=== PATIENT | female | born 1995 | race Caucasian/White ===

== ENCOUNTER 2016-06-20 20:14 | Emergency (ER) | payer BC ==
[~2016-06-20] VITALS: Ht 160 cm; Wt 79.4 kg
[2016-06-20 20:15] VITALS: BP 119/61; PULSE 60; RESP 20; TEMP 97.7; O2SAT 99
--- NOTE | 2016-06-20 22:00 | NUR ---
pt placed in bed 6 and gowned up for evaluation
--- NOTE | 2016-06-20 22:10 | NUR ---
Pt presents to ED with c/o umbilical pain 09/19, with abscess at lower umbilicus. Pt stated she was on antibiotic Rx but did not finish it. A&Ox4, denies SOB or chestpain, denies N/V/D. Skin intact. Will continue to monitor
--- NOTE | 2016-06-20 23:00 | NUR ---
at bedside examining pt
[2016-06-20] MEDS ORDERED: LIDOCAINE/EPI 1% 1:100000 20 ML VIAL INJ ONE (23:59)
[2016-06-21] MEDS ORDERED: BACITRACIN 1 GM OINT TP ONE (00:32)
[2016-06-21 00:35] VITALS: BP 112/56; PULSE 62; RESP 18; TEMP 97.7; O2SAT 98
--- NOTE | 2016-06-21 00:35 | NUR ---
Patient given written and verbal discharge instructions and verbalizes understanding. ER MD Ospina discussed with patient the results and treatment provided. Patient in stable condition. ID arm band removed. Rx of doxycycline given. Patient educated on pain management and to follow up with PMD. Pain Scale 0/10 Opportunity for questions provided and answered.
== END 2016-06-21 00:35 | disposition home or self-care (01) ==
LOC: SED 20:14
DX: L02.216 Cutaneous abscess of umbilicus (principal)
CPT/HCPCS: 99283

== ENCOUNTER 2016-06-21 22:36 | Emergency (ER) | payer BC ==
[~2016-06-21] VITALS: Ht 162.6 cm; Wt 79.4 kg
[2016-06-21 22:36] VITALS: BP 111/63; PULSE 64; RESP 18; TEMP 97.3; O2SAT 97
--- NOTE | 2016-06-21 23:10 | NUR ---
Placed in room 05 . Placed on motion study technician, blood pressure machine and pulse oximeter. To gown for exam. Side rails up. Report given to AUSTIN Beard.
--- NOTE | 2016-06-21 23:20 | NUR ---
Patient to ER for wound check. Patient has a deep creater of an abscess, packing pressent wut pus drainage. AAOx4, unlabored breathing, no signs of acute distress.
--- NOTE | 2016-06-21 23:32 | NUR ---
ER MD Benito at bedside for evaluation
--- NOTE | 2016-06-21 23:40 | NUR ---
Wound cleaned with saline. new Iodofor inserted. dressing applied.
[2016-06-21 23:51] VITALS: BP 117/72; PULSE 86; RESP 16; TEMP 98.1; O2SAT 99
--- NOTE | 2016-06-21 23:51 | NUR ---
Patient given written and verbal discharge instructions and verbalizes understanding. ER MD Benito discussed with patient the results and treatment provided. Patient in stable condition. ID arm band removed. Patient educated on pain management and to follow up with PMD. Pain Scale 0/10. Opportunity for questions provided and answered.
== END 2016-06-21 23:51 | disposition home or self-care (01) ==
LOC: SED 22:36
DX: Z48.01 Encounter for change or removal of surgical wound dressing (principal); L02.216 Cutaneous abscess of umbilicus
CPT/HCPCS: 99283

== ENCOUNTER 2016-06-23 15:56 | Emergency (ER) | payer BC ==
[~2016-06-23] VITALS: Ht 160 cm; Wt 79.4 kg
--- NOTE | 2016-06-23 16:15 | NUR ---
[facility] no beds available. Patient to waiting rm.
[2016-06-23 16:22] VITALS: BP 125/77; PULSE 66; RESP 16; TEMP 98; O2SAT 99
--- NOTE | 2016-06-23 16:30 | NUR ---
Patient seen triage rm by Laura WITT.
[2016-06-23] MEDS ORDERED: LIDOCAINE/EPI 1% 1:100000 20 ML VIAL INJ ONE (17:00)
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
--- NOTE | 2016-06-23 17:30 | NUR ---
Patient given written and verbal discharge instructions and verbalizes understanding. ER MD discussed with patient the results and treatment provided. Given copies of tests performed in ER. Patient in stable condition. ID arm band removed. Will continue with Doxycyline as previously prescribed. Patient educated on pain management and to follow up with PMD. Pain Scale 0/10. Opportunity for questions provided and answered.
== END 2016-06-23 17:30 | disposition home or self-care (01) ==
LOC: SED 15:56
DX: L02.216 Cutaneous abscess of umbilicus (principal)
CPT/HCPCS: 99283

== ENCOUNTER 2016-06-25 07:57 | Emergency (ER) | payer BC ==
[~2016-06-25] VITALS: Ht 167.6 cm; Wt 77.1 kg
[2016-06-25 07:57] VITALS: BP 118/73; PULSE 78; RESP 18; TEMP 97; O2SAT 100
--- NOTE | 2016-06-25 08:00 | NUR ---
PLACED IN ROOM 7
--- NOTE | 2016-06-25 08:33 | NUR ---
ER at bedside examining patient.
--- NOTE | 2016-06-25 08:40 | NUR ---
packing removed and replaced by Dr. Sood pt tolerated well, dressing applied
--- NOTE | 2016-06-25 09:01 | NUR ---
Patient given written and verbal discharge instructions and verbalizes understanding. ER MD discussed with patient the results and treatment provided. Patient in stable condition. ID arm band removed. No Rx given. Patient educated on pain management and to follow up with PMD. Pain Scale 0/10 Opportunity for questions provided and answered.
[2016-06-25 09:03] VITALS: BP 118/73; PULSE 71; RESP 15; TEMP 97; O2SAT 99
== END 2016-06-25 09:03 | disposition home or self-care (01) ==
LOC: SED 07:57
DX: R10.33 Periumbilical pain (principal)
CPT/HCPCS: 99281; 99282

== ENCOUNTER 2016-06-27 10:38 | Emergency (ER) | payer BC ==
[~2016-06-27] VITALS: Ht 165.1 cm; Wt 77.1 kg
[2016-06-27 10:45] VITALS: BP 117/78; PULSE 74; RESP 20; TEMP 97.4; O2SAT 98
--- NOTE | 2016-06-27 10:45 | NUR ---
Pt here for packing removed to abcess that was drained here on 06/25/2016. Redness to site noted, but no drainage. Pt denies c/o pain or discomfort to site. Pt to remain in triage for MSE.
--- NOTE | 2016-06-27 10:55 | NUR ---
Dr. Jordan in triage to assess pt and remove packing. New dsg applied. Pt tolerated well.
[2016-06-27 11:00] VITALS: BP 112/82; PULSE 72; RESP 18; TEMP 97.5; O2SAT 100
--- NOTE | 2016-06-27 11:00 | NUR ---
Patient given written and verbal discharge instructions and verbalizes understanding. ER MD discussed with patient the results and treatment provided. Patient in stable condition. ID arm band removed. Rx of Mupirocin Ointment given. Patient educated on pain management and to follow up with PMD. Pain Scale 0/10. Opportunity for questions provided and answered.
== END 2016-06-27 11:00 | disposition home or self-care (01) ==
LOC: SED 10:38
DX: Z48.01 Encounter for change or removal of surgical wound dressing (principal); L02.216 Cutaneous abscess of umbilicus
CPT/HCPCS: 99283

== ENCOUNTER 2016-11-08 21:59 | Emergency (ER) | payer BC ==
[~2016-11-08] VITALS: Ht 162.6 cm; Wt 77.1 kg
[2016-11-08 21:59] VITALS: BP_SYST 141
--- NOTE | 2016-11-08 21:59 | NUR ---
Patient to ER bed 8 to gown for evaluation. Side rails up. Report given to Amos AVILA.
--- NOTE | 2016-11-08 22:05 | NUR ---
Patient has been seen and evaluated by Laura MILL WORK, orders received and implemented
[2016-11-08] MEDS ORDERED: IBUPROFEN 800 MG TABLET PO ONE (22:15)
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
--- NOTE | 2016-11-08 22:31 | NUR ---
Patient to X-ray department for films
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
--- NOTE | 2016-11-08 22:38 | NUR ---
Patient back from X-ray department in stable condition. Will continue to observe and assess
--- NOTE | 2016-11-08 23:17 | NUR ---
Henok LOTT at bedside discussing the events with patient.
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
[2016-11-08 23:32] VITALS: BP_SYST 124
--- NOTE | 2016-11-08 23:32 | NUR ---
Patient given written and verbal discharge instructions and verbalizes understanding. ER LACE MACHINE OPERATOR Laura Hein discussed with patient the results and treatment provided. Patient in stable condition. ID arm band removed. Rx of motrin given. Patient educated on pain management and to follow up with PMD. Pain Scale 0/10. Opportunity for questions provided and answered.
== END 2016-11-08 23:32 | disposition home or self-care (01) ==
LOC: SED 21:59
DX: S62.665A Nondisplaced fracture of distal phalanx of left ring finger, initial encounter for closed fracture (principal); S60.221A Contusion of right hand, initial encounter; X50.9XXA Other and unspecified overexertion or strenuous movements or postures, initial encounter; Y93.89 Activity, other specified; Y92.89 Other specified places as the place of occurrence of the external cause; Y99.8 Other external cause status
CPT/HCPCS: 99284